=== PATIENT | male | born 1975 | race American Indian/Alaskan Native ===

== ENCOUNTER 2018-11-01 10:30 | Emergency (ER) | payer OTHER ==
[2018-11-01 10:40] VITALS: BP 130/77
--- NOTE | 2018-11-01 11:57 | Emergency Department Report ---
ED ENT HPI - General Chief complaint: Earache Stated complaint: RT EARDRUM POSS BUST Time Seen by Provider: 11/01/18 10:51 Source: patient Mode of arrival: Ambulatory Limitations: No Limitations - History of Present Illness Initial comments: This is a 42-year-old male brought by mother nontoxic, well nourished in appearance, no acute signs of distress presents to the ED with c/o of right earache. Patient agrees to having ear drainage. Patient denies any trauma to the area. Patient denies any mastoid tenderness. Patient stated that has tragus tenderness. Patient denies hearing decrease or hearing changes. Patient denies any fever, chills, nausea, vomiting, chest pain, short of breath, headache or stiff neck. Patient denies any drug allergies or significant past medical history. MD complaint: ear pain -: days(s) Location: R ear Severity: mild Severity scale (0 -10): 8 Quality: aching Consistency: constant Improves with: none Worsens with: none Associated Symptoms: denies: fever, cough, gum swelling, toothache, pain with swallowing, sore throat, tinnitus, hearing loss, discharge from ear, rhinorrhea - Related Data Previous Rx's Medication Instructions Recorded Last Taken Type Amoxicillin [Amoxicillin TAB] 875 mg PO BID #20 tablet 11/01/18 Unknown Rx Ciprofloxacin HCl/Dexameth 2 drops OD BID #1 drops.susp 11/01/18 Unknown Rx [Ciprodex Otic Suspension] Allergies Allergy/AdvReac Type Severity Reaction Status Date / Time No Known Allergies Allergy Verified 11/01/18 10:34 ED Dental HPI - General Chief complaint: Earache Stated complaint: RT EARDRUM POSS BUST Time Seen by Provider: 11/01/18 10:51 Source: patient Mode of arrival: Ambulatory Limitations: No Limitations - Related Data Previous Rx's Medication Instructions Recorded Last Taken Type Amoxicillin [Amoxicillin TAB] 875 mg PO BID #20 tablet 11/01/18 Unknown Rx Ciprofloxacin HCl/Dexameth 2 drops OD BID #1 drops.susp 11/01/18 Unknown Rx [Ciprodex Otic Suspension] Allergies Allergy/AdvReac Type Severity Reaction Status Date / Time No Known Allergies Allergy Verified 11/01/18 10:34 ED Review of Systems ROS: Stated complaint: RT EARDRUM POSS BUST Other details as noted in HPI Constitutional: denies: chills, fever Eyes: denies: eye pain, eye discharge, vision change ENT: ear pain. denies: throat pain Respiratory: denies: cough, shortness of breath, wheezing Cardiovascular: denies: chest pain, palpitations Endocrine: no symptoms reported Gastrointestinal: denies: abdominal pain, nausea, diarrhea Genitourinary: denies: urgency, dysuria Musculoskeletal: denies: back pain, joint swelling, arthralgia Skin: denies: rash, lesions Neurological: denies: headache, weakness, paresthesias Psychiatric: denies: anxiety, depression Hematological/Lymphatic: denies: easy bleeding, easy bruising ED Past Medical Hx - Past Medical History Previous Medical History?: No - Surgical History Past Surgical History?: No - Social History Smoking Status: Never Smoker Substance Use Type: None - Medications Home Medications: Home Medications Medication Instructions Recorded Confirmed Last Taken Type Amoxicillin [Amoxicillin TAB] 875 mg PO BID #20 tablet 11/01/18 Unknown Rx Ciprofloxacin HCl/Dexameth 2 drops OD BID #1 drops.susp 11/01/18 Unknown Rx [Ciprodex Otic Suspension] ED Physical Exam - General Limitations: No Limitations General appearance: alert, in no apparent distress - Head Head exam: Present: atraumatic, normocephalic - Expanded ENT Exam Expanded Ear exam: Present: normal external inspection TM/Canal exam: Erythema: Right TM, Bulging: Right TM, Canal Discharge: Right TM Mouth exam: Present: normal external inspection - Neck Neck exam: Present: normal inspection, full ROM. Absent: tenderness, meningismus - Extremities Exam Extremities exam: Present: normal inspection, full ROM - Back Exam Back exam: Present: normal inspection, full ROM - Neurological Exam Neurological exam: Present: alert, oriented X3, normal gait - Psychiatric Psychiatric exam: Present: normal affect, normal mood - Skin Skin exam: Present: warm, dry, intact, normal color. Absent: rash - Other Other exam information: positive tragus pain to right ear ED Course Vital Signs 11/01/18 10:38 Temperature 98.6 F Pulse Rate 75 Respiratory 18 Rate Blood Pressure 130/77 O2 Sat by Pulse 95 Oximetry - Reevaluation(s) Reevaluation #1: 11/01/18 11:54 Patient is speaking in full sentences with no signs of distress noted. Critical care attestation.: If time is entered above; I have spent that time in minutes in the direct care of this critically ill patient, excluding procedure time. ED Disposition Clinical Impression: Right otitis externa Qualifiers: Otitis externa type: unspecified type Chronicity: acute Qualified Code(s): H60.501 - Unspecified acute noninfective otitis externa, right ear Right otitis media Qualifiers: Otitis media type: unspecified Qualified Code(s): H66.91 - Otitis media, unsp ecified, right ear Disposition: TO HOME OR SELFCARE Is pt being admited?: No Does the pt Need Aspirin: No Condition: Stable Instructions: Otitis Media (ED), Otitis Externa (ED) Additional Instructions: Follow-up with a primary care doctor in 3-5 days or if symptoms worsen and continue return to emergency room as soon as possible. Prescriptions: Amoxicillin [Amoxicillin TAB] 875 mg PO BID #20 tablet Ciprofloxacin HCl/Dexameth [Ciprodex Otic Suspension] 2 drops OD BID #1 drops.susp Referrals: PRIMARY CAREMD [Primary Care Provider] - 3-5 Days KATHARINA ALLEN MD [Staff Physician] - 3-5 Days [facility] [Outside] - 3-5 Days [facility] [Outside] - 3-5 Days Forms: Work/School Release Form(ED)
== END 2018-11-01 12:06 | disposition home or self-care (01) ==
LOC: ED 10:30
DX: H66.91 Otitis media, unspecified, right ear (principal); H60.91 Unspecified otitis externa, right ear
CPT/HCPCS: 99281

== ENCOUNTER 2020-12-31 07:48 | Emergency (ER) | payer SELFPAY ==
[2020-12-31 08:32] VITALS: BP 140/86
--- NOTE | 2020-12-31 09:52 | Emergency Department Report ---
ED ENT HPI - General Chief complaint: Earache Stated complaint: LT EAR/PAIN DISCHARGE Time Seen by Provider: 12/31/20 09:16 Source: patient Mode of arrival: Ambulatory Limitations: No Limitations - History of Present Illness Initial comments: The patient was evaluated in the emergency department for symptoms described in the history of present illness. He/she was evaluated in the context of the global COVID-19 pandemic, which necessitated consideration that the patient might be at risk for infection with the virus that causes COVID-19. Institution al protocols and algorithms that pertain to the evaluation of patients at risk for COVID-19 are in a state of rapid change based on information released by regulatory bodies including the CDC and federal and state organizations. These policies and algorithms were followed during the patient's care in the emergency department. Please note that these policies, procedures and recommendations changed on a rapid basis. 45-year-old -[place] male presents to the emergency room for left ear pain since Thursday. Patient states he took a shower got some water in it tried to drain it lay down started having discharge from his left ear patient states then on today's he woke up in excruciating pain and discharge to his left ear. Patient denies any fever chills. Denies any known drug allergies no past medical history currently takes no meds on a daily basis. MD complaint: ear pain Onset/Timin -: days(s) Location: L ear Severity: severe Severity scale (0 -10): 9 Quality: stabbing, aching, sharp Consistency: constant Improves with: none Worsens with: none Associated Symptoms: discharge from ear - Related Data Previous Rx's Medication Instructions Recorded Last Taken Type Ciprofloxacin HCl/Dexameth 2 drops OD BID #1 drops.susp 11/01/18 Unknown Rx [Ciprodex Otic Suspension] Amoxicillin [Amoxicillin TAB] 875 mg PO BID #20 tablet 12/31/20 Unknown Rx Naproxen 500 mg PO Q12H #20 tablet 12/31/20 Unknown Rx Neomy/Polymyx B/Hc Otic Susp 4 drops OS TID 10 Days #1 bottle 12/31/20 Unknown Rx [Cortisporin (Otic) Susp] Allergies Allergy/AdvReac Type Severity Reaction Status Date / Time No Known Allergies Allergy Verified 11/01/18 10:34 ED Dental HPI - General Chief complaint: Earache Stated complaint: LT EAR/PAIN DISCHARGE Time Seen by Provider: 12/31/20 09:16 Source: patient Mode of arrival: Ambulatory Limitations: No Limitations - Related Data Previous Rx's Medication Instructions Recorded Last Taken Type Ciprofloxacin HCl/Dexameth 2 drops OD BID #1 drops.susp 11/01/18 Unknown Rx [Ciprodex Otic Suspension] Amoxicillin [Amoxicillin TAB] 875 mg PO BID #20 tablet 12/31/20 Unknown Rx Naproxen 500 mg PO Q12H #20 tablet 12/31/20 Unknown Rx Neomy/Polymyx B/Hc Otic Susp 4 drops OS TID 10 Days #1 bottle 12/31/20 Unknown Rx [Cortisporin (Otic) Susp] Allergies Allergy/AdvReac Type Severity Reaction Status Date / Time No Known Allergies Allergy Verified 11/01/18 10:34 ED Review of Systems ROS: Stated complaint: LT EAR/PAIN DISCHARGE Other details as noted in HPI Comment: All other systems reviewed and negative ED Past Medical Hx - Past Medical History Previous Medical History?: No - Surgical History Past Surgical History?: No - Social History Smoking Status: Never Smoker Substance Use Type: None - Medications Home Medications: Home Medications Medication Instructions Recorded Confirmed Last Taken Type Ciprofloxacin HCl/Dexameth 2 drops OD BID #1 drops.susp 11/01/18 Unknown Rx [Ciprodex Otic Suspension] Amoxicillin [Amoxicillin TAB] 875 mg PO BID #20 tablet 12/31/20 Unknown Rx Naproxen 500 mg PO Q12H #20 tablet 12/31/20 Unknown Rx Neomy/Polymyx B/Hc Otic Susp 4 drops OS TID 10 Days #1 bottle 12/31/20 Unknown Rx [Cortisporin (Otic) Susp] ED Physical Exam - General Limitations: No Limitations General appearance: alert, in no apparent distress - Head Head exam: Present: atraumatic, normocephalic - Eye Eye exam: Present: normal appearance - ENT ENT exam: Present: mucous membranes moist - Expanded ENT Exam Expanded TM/Canal exam: Erythema: Left TM, Canal Discharge: Left TM, Canal Tenderness: Left TM - Neck Neck exam: Present: normal inspection, full ROM - Respiratory Respiratory exam: Absent: respiratory distress, wheezes, accessory muscle use - Cardiovascular Cardiovascular Exam: Present: regular rate. Absent: systolic murmur, diastolic murmur, rubs, gallop - GI/Abdominal GI/Abdominal exam: Present: soft, normal bowel sounds - Rectal Rectal exam: Present: deferred - Extremities Exam Extremities exam: Present: normal inspection, other (Tragus tenderness) - Back Exam Back exam: Present: normal inspection - Neurological Exam Neurological exam: Present: alert, oriented X3 - Psychiatric Psychiatric exam: Present: normal affect, normal mood - Skin Skin exam: Present: warm, dry, intact, normal color. Absent: rash ED Course Vital Signs 12/31/20 08:31 Temperature 98.5 F Pulse Rate 71 Respiratory 18 Rate Blood Pressure 140/86 [Left] O2 Sat by Pulse 96 Oximetry Critical care attestation.: If time is entered above; I have spent that time in minutes in the direct care of this critically ill patient, excluding procedure time. ED Disposition Clinical Impression: Left otitis externa Disposition: HOME / SELF CARE / HOMELESS Is pt being admited?: No Does the pt Need Aspirin: No Condition: Stable Instructions: Ear Drops, Adult, [id number], Otitis Externa, [id number] Additional Instructions: Complete antibiotics as prescribed. Pain medication as needed. Follow-up with ear nose and throat provider if symptoms persist or gets worse. Prescriptions: Amoxicillin [Amoxicillin TAB] 875 mg PO BID #20 tablet Neomy/Polymyx B/Hc Otic Susp [Cortisporin (Otic) Susp] 4 drops OS TID 10 Days #1 bottle Naproxen 500 mg PO Q12H #20 tablet Referrals: PRIMARY MD LOLA [Primary Care Provider] - 3-5 Days SAMINA KENNEY MD [Referring] - 3-5 Days Forms: Work/School Release Form(ED) Time of Disposition: 09:56
== END 2020-12-31 10:18 | disposition home or self-care (01) ==
LOC: ED 07:48
DX: H60.92 Unspecified otitis externa, left ear (principal)
CPT/HCPCS: 99281